=== PATIENT | female | born 1990 | race Hispanic/Latino ===

== ENCOUNTER 2017-11-07 16:27 | Emergency (ER) | payer BC, OTHER ==
[~2017-11-07] VITALS: Ht 160 cm; Wt 71.2 kg
[2017-11-07] MEDS ORDERED: IBUPROFEN 600 MG TAB PO STA (17:09)
[2017-11-07 18:07] VITALS: BP 132/78
== END 2017-11-07 18:00 | disposition home or self-care (01) ==
LOC: FSED 16:27
DX: S83.8X2A Sprain of other specified parts of left knee, initial encounter (principal); Y93.01 Activity, walking, marching and hiking; Y99.0 Civilian activity done for income or pay
CPT/HCPCS: 99284